=== PATIENT | male | born 1940 | race Caucasian/White ===

== ENCOUNTER → 2019-06-04 | Emergency (ER) | payer MEDICARE ==
[~2019-06-04] VITALS: Ht 190.5 cm; Wt 76.4 kg
[~2019-06-04] MED LIST: FUROSEMIDE 20 MG/2 ML VIAL ONE
[2019-06-04 01:30] VITALS: BP 128/64
--- NOTE | 2019-06-04 01:30 | NUR ---
[id number] MORE ALTERED THAN USUAL AND O2 DESAT PER RA, BS 278. PT CAME IN WITH NONREBREATHER AT 10L AND O2 SAT AT 100%. PT NONVERBAL AND UNABLE TO COMMUNICATE NEEDS. NAD NOTED. PT ON MONITOR IN BED 8. WILL CONTINUE TO MONITOR.
--- NOTE | 2019-06-04 01:50 | NUR ---
96.8 RECTAL TEMP. AWARE.
--- NOTE | 2019-06-04 01:56 | NUR ---
RADIOLOGY AT BEDSIDE FOR XRAY
--- NOTE | 2019-06-04 01:56 | NUR ---
L WRIST 18G INITIATED. BLOOD DRAWN AND GIVEN TO LAB.
[2019-06-04 03:46] LABS: BASOPHILS % (AUTO) 0.3 % (0.0-2.0); EOSINOPHILS % (AUTO) 0.1 % (0.0-6.0); HEMATOCRIT 27 % (39-51); HEMOGLOBIN 9.3 g/dL (13.5-17.5); LYMPHOCYTES # (AUTO) 0.3 /CMM (0.8-4.8); MEAN CORPUSCULAR VOLUME 104 fL (80-96); NEUTROPHILS # (AUTO) 6.3 /CMM (1.8-8.9)
[2019-06-04 03:47] LABS: MONOCYTES # (AUTO) 0.4 /CMM (0.1-1.30)
--- NOTE | 2019-06-04 05:52 | NUR ---
REFER TO DOWNTIME PAPERWORK. PATIENT DISCHARGED.
[2019-06-04 06:03] LABS: CARBON DIOXIDE 33 mmol/L (21-32); CHLORIDE 102 mmol/L (98-107); POTASSIUM 4.2 mmol/L (3.5-5.1); SODIUM SERUM 136 mmol/L (136-145)
[2019-06-04 06:04] LABS: ALANINE AMINOTRANSFERASE 46 U/L (12-78); ALKALINE PHOSPHATASE 147 U/L (46-116); ASPARTATE AMINOTRANSFERASE 34 U/L (15-37); B-TYPE NATRIURETIC PEPTIDE 431 PG/ML (0-125); BILIRUBIN,TOTAL 2.7 mg/dL (0.2-1.0); CALCIUM, SERUM 8.3 mg/dL (8.5-10.1); CREATININE 1.9 mg/dL (0.6-1.3); GLUCOSE 259 mg/dL (74-106); UREA NITROGEN, BLOOD 75 mg/dL (7-18)
[2019-06-04 06:05] LABS: MEAN CORPUSCULAR HGB CONC 34 g/dl (31.0-36.0)
[2019-06-04 06:08] LABS: PLATELET COUNT (AUTO) 36 /CMM (150-450)
[2019-06-04 06:40] LABS: LYMPHOCYTES % (MANUAL) 3 % (16-48); MONOCYTES % (MANUAL) 3 % (0-11.0); NEUTROPHILS % (MANUAL) 94 (42-76)
== END | disposition home or self-care (01) ==
LOC: ER 01:23
DX: K74.69 Other cirrhosis of liver (principal); R18.8 Other ascites; I50.9 Heart failure, unspecified; J90 Pleural effusion, not elsewhere classified; R41.82 Altered mental status, unspecified
CPT/HCPCS: 36415; 70450; 71045; 76705; 80048; 80076; 83605; 83880; 84484; 85025; 85730; 87040 ×2; 93005; 99284; J1940